=== PATIENT | female | born 1965 | race Caucasian/White ===

== ENCOUNTER 2018-01-24 15:29 | Outpatient (REF) | payer MEDICAID, SELFPAY | END 2018-01-24 15:49 | LOC: NCHCN 15:29 | PROVIDERS: PCP Family Medicine; Visit Provider Registered Nurse | DX: R30.0 Dysuria (principal); N39.0 Urinary tract infection, site not specified | CPT/HCPCS: 87077; 87086; 87186 ==

== ENCOUNTER 2018-02-07 15:20 | Outpatient (REF) | payer MEDICAID, SELFPAY | END 2018-02-07 15:40 | LOC: NCHCN 15:20 | PROVIDERS: PCP Family Medicine; Visit Provider Family Medicine | DX: N39.0 Urinary tract infection, site not specified (principal); Z94.0 Kidney transplant status | CPT/HCPCS: 87077; 87086; 87186 ==

== ENCOUNTER 2019-01-25 19:42 | Outpatient (REF) | payer MEDICAID, SELFPAY ==
--- NOTE | 2019-01-25 18:30 | PAPFT_PTH ---
PATIENT: Emely Mejia LOC: [facility] U#:[id number] AGE/SX: 53/F ROOM: RE01/25/[address]: Yasmeen Salazar : 1965 BED: DIS: 01/25/2019 SPEC #: [id number] RECD: 01/26/19 12:59 STATUS: FELICE REQ #: [id number] SABIHA: 01/25/19 18:[address]: Yasmeen Salazar DEPT: [facility] Cytology RECD BY: Misty White Tissues: 1 - CX/ENDOCX FOR PAP SMEARS Procedures: PAP THIN PREP/[facility] Screening HPV DNA PROBE Comments: [id number]
== END 2019-01-25 20:02 ==
LOC: NCHCN 19:42
PROVIDERS: PCP Family Medicine; Visit Provider Family Medicine
DX: Z12.4 Encounter for screening for malignant neoplasm of cervix (principal); Z11.51 Encounter for screening for human papillomavirus (HPV)
CPT/HCPCS: 88142; 87624

== ENCOUNTER 2019-11-10 13:34 | Outpatient (REF) | payer MEDICAID, SELFPAY ==
[2019-11-10 21:25] LABS: Abs Immature Grans 0.01 k/cumm (0.0-0.09); Absolute Basophil Count 0.02 k/cumm (0.0-0.2); Absolute Eosinophil Count 0.05 k/cumm (0.0-0.7); Absolute Monocyte Count 0.48 k/cumm (0.11-0.7); Absolute Neutrophil Count 4.01 k/cumm (1.2-6.7); Basophils % 0.4; Eosinophils % 0.9; HGB 13.7 g/dL (12.0-15.5); Immature Grans % 0.2 %; Lymphocytes % 19.4; Mean Corp. HGB Concentration 31.9 g/dL (32.0-36.0); Mean Corpuscular Hemoglobin 27.8 pg (27.0-33.0); Mean Corpuscular Volume 87.2 fL (80-95); Mean Platelet Volume 11.3 fL (8.0-11.0); Monocytes % 8.5; Neutrophils % 70.6; Platelet Count 168 x1000/uL (130-400); RBC 4.93 m/cumm (4.00-5.20); RBC Distribution Width 13.7 % (11.7-14.6); White Blood Cell Count 5.67 k/cumm (4.4-10.8)
== END 2019-11-10 13:54 ==
LOC: NCHCN 13:34
PROVIDERS: PCP Family Medicine; Visit Provider Registered Nurse
DX: R19.7 Diarrhea, unspecified (principal)
CPT/HCPCS: 85025

== ENCOUNTER 2019-11-13 22:36 | Outpatient (REF) | payer MEDICAID, SELFPAY ==
[2019-11-15 11:38] LABS: Campylobacter PCR Negative (Negative); Salmonella PCR Negative (Negative); Shiga Toxin PCR Negative (Negative); Shigella/Enteroinvasive Ecoli Negative (Negative)
== END 2019-11-13 22:56 ==
LOC: NCHCN 22:36
PROVIDERS: PCP Family Medicine; Visit Provider Registered Nurse
DX: R19.7 Diarrhea, unspecified (principal)
CPT/HCPCS: 87505; 83630; 85613; 87324

== ENCOUNTER 2024-05-01 16:36 | Outpatient (REF) | payer BC, SELFPAY ==
--- NOTE | 2024-05-01 11:15 | PAPFT_PTH ---
PATIENT: Emely Mejia [facility] U#:[id number] AGE/SX: 59/F ROOM: RE05/01/[address]: Yasmeen Salazar : 1965 BED: DIS: 05/01/2024 SPEC #: [id number] RECD: 05/02/24 13:03 STATUS: FELICE REJass #: [id number] SABIHA: 05/01/24 11:[address]: Yasmeen Salazar DEPT: [facility] Cytology RECD BY: Misty White Tissues: 1 - CX/ENDOCX FOR PAP SMEARS Procedures: PAP THIN PREP/[facility] Screening HPV DNA PROBE Comments: [id number] (HPV 16 & 18/45)
== END 2024-05-01 16:37 | disposition home or self-care (01) ==
LOC: NCHCN 16:36
PROVIDERS: PCP Family Medicine; Visit Provider Family Medicine
DX: Z11.51 Encounter for screening for human papillomavirus (HPV) (principal); Z01.419 Encounter for gynecological examination (general) (routine) without abnormal findings
CPT/HCPCS: 88142; 87624